=== PATIENT | male | born 1980 | race Caucasian/White ===

== ENCOUNTER 2017-08-08 07:37 | Emergency (ER) | payer BC ==
[2017-08-08 07:44] VITALS: BP 138/82
--- NOTE | 2017-08-08 07:44 | UC ---
Lower Extremity/Ankle HPI - HPI Summary HPI Summary: 36 yo, one day hx of left foot, dorsum. Awoke with complaint yesterday. Resolved in 90 minutes then worse throughout day as stood at work. Continued pain today. 2 years ago similar complaint, same foot, resolved in 4 days. Limping when walks. 8/10 pain. No known injury. Vital signs: tachy noted; elevated BP; no temperature. - History of Current Complaint Stated Complaint: FOOT INJURY Time Seen by Provider: 08/08/17 07:39 Hx Obtained From: Patient Onset/Duration: Sudden Onset - Allergies/Home Medications Allergies/Adverse Reactions: Allergies Allergy/AdvReac Type Severity Reaction Status Date / Time No Known Allergies Allergy Verified 08/08/17 07:45 Home Medications: Home Medications Esomeprazole Magnesium [Nexium 24Hr] 20 mg PO DAILY 08/08/17 [History Confirmed 08/08/17] PMH/Surg Hx/FS Hx/Imm Hx - Additional Past Medical History Additional PMH: Negative PMH except for GERD. Did have similar complaint 2 years ago with pain over left foot. No hx of elevated blood pressure. family hx: negative for significant chronic illness; negative hypertension. Previously Healthy: Yes GI/ History: Gastroesophageal Reflux - Surgical History Surgical History: None - Family History Known Family History: Positive: None - Social History Occupation: Employed Full-time - Works standing up at [employer]. Alcohol Use: Rare Substance Use Type: None Smoking Status (MU): Never Smoked Tobacco Review of Systems Constitutional: Negative Skin: Negative Eyes: Negative ENT: Negative Respiratory: Negative Cardiovascular: Negative Gastrointestinal: Negative Genitourinary: Negative Motor: Other - Pain over dorsum of left foot. Isolated; not radiating. Neurovascular: Negative Musculoskeletal: Negative Neurological: Negative Psychological: Negative Is Patient Immunocompromised?: No All Other Systems Reviewed And Are Negative: Yes - Comments Additional Review of Systems Comments: Appears healthy. Only c/o left foot pain. Physical Exam Triage Information Reviewed: Yes Appearance: Well-Appearing Vital Signs Reviewed: Yes Eye Exam: Normal ENT Exam: Normal Dental Exam: Normal Neck exam: Normal Neck: Positive: 1 Respiratory Exam: Normal Respiratory: Positive: Lungs clear Cardiovascular Exam: Normal Cardiovascular: Positive: RRR, No Murmur Abdominal Exam: Normal Abdomen Description: Positive: Nontender Bowel Sounds: Positive: Present Musculoskeletal Exam: Other Musculoskeletal: Positive: Edema @, Other: - LEFT FOOT: 1 plus swelling dorsum left foot; pain over dorsum, mid foot and with extension of extensor tendons to toes; no pain over distal ankle. No pain anywhere else. Negative Homans; no infection or signs of gout; Achilles intact. Summary: pain/swelling over insertion of extensor tendons of left foot. Neurological Exam: Normal Psychological Exam: Normal Skin Exam: Normal Lower Extremity Course/Dx - Course Course Of Treatment: Pulse at 90 by stethoscope. Was tachycardic at desk. Mild elevated BP noted and discussed. Advised to follow up with PMD. Probably situational elevation. X ray:no fx. Radiologist read: Patient has no pain in this area. Discussed with patient and he will follow up with PMD. Copy of x ray and report given to patient. THERE IS A NONAGGRESSIVE APPEARING LUCENT LESION OF THE CALCANEUS. THE IMAGING APPEARANCE. 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 GIVEN THE HISTORY OF PAIN,. CHONDROSARCOMA IS WITHIN THE DIFFERENTIAL. RECOMMEND CONSIDERATION OF FURTHER EVALUATION. WITH CONTRAST-ENHANCED MRI OF THE HINDFOOT. Discussed with patient. He will follow up. - Differential Dx/Diagnosis Differential Diagnosis/HQI/PQRI: Contusion, Fracture (Closed), Sprain, Strain, Other Provider Diagnoses: Tendonitis, extensor tendons left foot - Physician Notifications Discussed Patient Care With: all items in dx discussed and understood by patient. Discharge - Discharge Plan Condition: Stable Disposition: HOME Patient Education Materials: Tendinitis (ED) Forms: *Gen. Provider Communication Referrals: No Primary Care Phys,NOPCP [Primary Care Provider] - Additional Instructions: Thanks for filling out the [employer] survey. WE DISCUSSED: 1. You have a tendonitis of the tendons on the top of the left foot. 2. This should get better with time and restricted us, either crutches or staying off of the foot. 3. Ibuprofen 400mg (2 pills) and acetaminophen 500 mg taken at the same time, up to four times a day would be good for both pain and calming down the inflammation. This may irritate your stomach. Take an antacid if it does. If you need to do this for more than a week because of pain, check with your doctor. 4. Warm, moist heat soaks help bring circulation to the area and loosen it up. 5. Ice massage help with pain after use. Also elevate. 6. Recheck at anytime for increased pain, temperature, disability. 7. Follow up with your doctor if this is not better in 2 weeks. You may need physical therapy at that time. 8. Use ricardo, crutches and boot for comfort. As you get more comfortable you can add more weight to your foot. 9. Finally, the radiologist saw an area on your calcaneous, which is non tender , and he recommends follow up. Call your doctor. He/she can see this report on the computer and you have a hard copy.
--- NOTE | 2017-08-08 08:26 | RAD ---
HISTORY: Left foot pain COMPARISONS: None VIEWS: 3, Frontal, lateral, and oblique views of the left foot FINDINGS: BONE DENSITY: Normal. BONES: There is a well-circumscribed lucent lesion of the calcaneus. This is medullary and slightly expansile. There is minimal chondroid matrix. JOINTS: There is no arthropathy. ALIGNMENT: There is no dislocation. SOFT TISSUES: Unremarkable. OTHER FINDINGS: None. IMPRESSION: THERE IS A NONAGGRESSIVE APPEARING LUCENT LESION OF THE CALCANEUS. THE IMAGING APPEARANCE IS SUGGESTIVE OF AN ENCHONDROMA, OR POSSIBLY GIANT CELL TUMOR. GIVEN THE HISTORY OF PAIN, CHONDROSARCOMA IS WITHIN THE DIFFERENTIAL. RECOMMEND CONSIDERATION OF FURTHER EVALUATION WITH CONTRAST-ENHANCED MRI OF THE HINDFOOT.
== END 2017-08-08 08:51 | disposition home or self-care (01) ==
LOC: UCEAST 07:37
DX: M77.52 Other enthesopathy of left foot and ankle (principal); K21.9 Gastro-esophageal reflux disease without esophagitis
CPT/HCPCS: 99213; G0463